=== PATIENT | male | born 1990 | race Caucasian/White ===

== ENCOUNTER 2017-04-07 13:57 | Emergency (ER) | payer OTHER ==
[~2017-04-07] VITALS: Ht 182.9 cm; Wt 77.1 kg
[2017-04-07] MEDS ORDERED: FLUO20CA36 PO (14:18)
--- NOTE | 2017-04-07 14:21 | NUR ---
Patient does not wish to proceed with medical care recommended by Dr. Gutierrez. Patient given information related to possible complications, up to and including , which could occur as a result of leaving the hospital at this time. Patient verbalizes understanding of risks involved due to leaving against medical advice. Patient has not signed AMA form - he left before staff is able to provide the form.
[2017-04-07 14:23] VITALS: BP 120/77
== END 2017-04-07 14:24 | disposition left against medical advice (07) ==
LOC: ER 14:00
DX: Z53.21 Procedure and treatment not carried out due to patient leaving prior to being seen by health care provider (principal)
CPT/HCPCS: A4606; Z7610